=== PATIENT | male | born 1990 | race African-American/Black ===

== ENCOUNTER 2020-02-04 07:51 | Emergency (ER) | payer OTHER ==
[~2020-02-04] VITALS: Ht 177.8 cm; Wt 109.7 kg
[2020-02-04] MEDS ORDERED: BACT800T5 PO (09:12)
[2020-02-04 09:30] VITALS: BP 132/77
[2020-02-04 09:53] LABS: CHLAMYDIA DNA AMPLIFICATION NEGATIVE (NEGATIVE); GC DNA AMPLIFICATION NEGATIVE (NEGATIVE)
== END 2020-02-04 09:30 | disposition home or self-care (01) ==
LOC: M ED 07:51
DX: N39.0 Urinary tract infection, site not specified (principal)